=== PATIENT | female | born 1980 | race Caucasian/White ===

== ENCOUNTER 2023-07-05 09:33 | Day surgery (SDC) | payer BC, SELFPAY ==
[2023-07-05 10:01] VITALS: BMI 23.3
[2023-07-05 10:03] VITALS: BP 106/66; PULSE 82; RESP 18; TEMP 36.3; O2SAT 98
[2023-07-05] MEDS: LACTATED RINGERS 1000 ML 1,000 ML 100 ML IV ×2 (10:15→11:54)
[2023-07-05] MEDS: SODIUM CHLORIDE 0.9 % (FLUSH) 10 ML SYRINGE IVF (10:17)
--- NOTE | 2023-07-05 10:45 | CRLHL7_ITS ---
For Patients: As a result of the Century Cures Act, medical imaging exams and procedure reports are released immediately into your electronic medical record. You may view this report before your referring provider. If you have questions, please contact your health care provider. INDICATION: Postop. TECHNIQUE: Two spot images of the left forefoot submitted. 47.1 seconds fluoro time provided. FINDINGS: Left 1st TMT fusion plate and screws. Second metatarsal neck osteotomy with screw fixation. Dictated by Chay Olivares MD @ 07/06/2023 1:31:48 PM (Electronically Signed)
[2023-07-05] MEDS: CEFAZOLIN 1 GM inj IVP (10:50)
[2023-07-05] MEDS: BUPIVACAINE 0.5% 30 ML INJECTION (10:53)
--- NOTE | 2023-07-05 11:30 | SUR.OPER ---
PATIENT QUESTIONS ANSWERED SATISFACTORILY PREOPERATIVELY.? PATIENT BROUGHT TO OR #1 PER CART.? Patient positioned supine on OR #1 bed.? The perioperative?team supported arms bilaterally on arm boards.? Final approval of positioning by surgeon.
[2023-07-05 13:11] VITALS: BP 106/69; PULSE 81; RESP 16; TEMP 37.1; O2SAT 99
--- NOTE | 2023-07-05 13:14 | W.ANESCHARGE ---
Anesthesia Charges Start Date/Time Anesthesia Start Date: 07/05/23 Anesthesia Start Time: 10:42 Stop Date/Time Anesthesia Stop Date: 07/05/23 Anesthesia Stop Time: 13:15
[2023-07-05 13:30] VITALS: BP 103/55; PULSE 69; RESP 16; O2SAT 99
--- NOTE | 2023-07-05 13:30 | P.GSOP_ITS ---
Operative Note Date of procedure: 07/05/23 Pre-op diagnosis: 1. Hallux valgus with bunion left 2. Metatarsalgia 2nd left Post-op diagnosis: 1. Hallux valgus with bunion left 2. Metatarsalgia 2nd left Type of Procedure: 1. Lapidus bunionectomy left foot 2. Naresh osteotomy 2nd left Indications: Patient is in clinic for ongoing bunion and metatarsal pain. She is not improved with nonsurgical care and has elected to proceed surgical reconstruction. I reviewed the procedure, recovery, expectation potential complications. These include but are not limited to: Poor wound healing, infection, under correction, over correction, nonunion, malunion, delayed union, continued pain, stiffness, potential need for future surgery, hardware irritation, nerve injury, complex regional pain syndrome, deep venous thrombosis, pulmonary embolism and . All questions answered and written consent was obtained. Procedure Description: After discussing the risks and benefits of the procedure, the patient signed informed consent.? The operative site was marked and the patient was brought to the operating room and placed on the operating table in supine position.? Care was taken to pad the patient's pressure points.?? The patient was then given sedation by anesthesia.?? The operative site was then prepped and draped in the usual sterile fashion.? A time-out was then performed. Left foot was exsanguinated and the ankle tourniquet inflated to 250 mm Hg. Dorsomedial current freed linear incision was made over the 1st metatarsophalangeal joint extended dorsally and medially to the 1st metatarsal cuneiform joint. The incision was carried down through skin subcutaneous tissues. A T-shaped capsular incision was then made the capsular tissues reflected away from the head of the 1st metatarsal. Blunt dissection carried out into the 1st intermetatarsal space a standard lateral release was performed. Dorsal fibular sesamoidal ligament the adductor tendon were released and a minimal release of the plantar and lateral joint capsule. Extensor hallus longus tendon was retracted laterally. Subcutaneous tissues reflected away from the 1st metatarsal cuneiform joint. Periosteum left intact. The joint was incised. A joint distractor applied and the joint . Utilizing a osteotome and curette cartilage and subchondral bone were removed from the medial cuneiform and 1st metatarsal base. Wound was irrigated normal sterile saline. The joint was then prepped by drilling multiple fenestrated holes to the opposing fusion surfaces. Both sides were then fish-scaled with an osteotome. A linear incision was then made over the 2nd metatarsal head. Blunt dissection carried along the lateral border. Guide pin was placed in the 1st metatarsal head and the Lapifuse jig applied and the 1st metatarsal was corrected in all 3 planes. The jig was locked in place. C-arm confirmed excellent position. Guide pin was placed in the 1st metatarsal base plantar medial and driven across the fusion site into the middle cuneiform. 35 mm partially threaded cannulated screw was then inserted. Excellent compression noted across the fusion site. The jig was removed and a 5 hole plate was applied dorsal medial across the fusion site. 3.0 mm locking screws were placed 2 proximal and 2 distal. 1st metatarsal head was then remodeled with a rotary bur. Wound was thoroughly irrigated normal sterile saline. Final C-arm images confirmed excellent reduction of the bunion deformity. Redundant capsular tissue was excised at the MPJ. Capsule was then repaired using 3-0 Vicryl resulting in the hallux and rectus position. Subcutaneous tissues reapproximated 4-0 Monocryl and skin closed with 4-0 Prolene. Through the 2nd metatarsal head incision the extensor tendons were reflected laterally. A periosteal capsular incision was made linearly. The 2nd metatarsal head was exposed. A Naresh osteotomy was then performed and the capital fragment was transposed proximal 3 mm. It was then fixated using a 2.7 mm twist off screw x1. Dorsal overhang was removed with a rongeur. Wound irrigated normal sterile saline. Joint capsule repaired with 4-0 Vicryl subcutaneous tissues reapproximated 4-0 Monocryl and skin closed with 4-0 Prolene. Sterile dressings were then applied. Tourniquet was released and Normal capillary fill time returned all digits. She was placed in a well-padded cam boot. The patient was then woken and transported to the recovery area in stable condition. The patient tolerated the procedure well. She is given both written and verbal postop instructions. She is nonweightbearing. She is given oxycodone for pain. She will follow up in clinic in 2 days. Findings: Complications: None apparent Implants: Mcdonald Lapifuse 5 hole plate x1, 3.0 locking screws times 4, 4.0 partially- threaded cannulated screw x1, Octaviano twist off 2.7 mm screw x1. Anesthesia: MAC and local Surgeon: William Carlos DPM Estimated blood loss (mL): 2 Condition: stable Disposition: same day
[2023-07-05 13:45] VITALS: BP 108/60; PULSE 66; RESP 16; O2SAT 99
== END 2023-07-05 14:11 | disposition home or self-care (01) ==
LOC: OR 09:35
PROVIDERS: PCP Student in an Organized Health Care Education/Training Program; Visit Provider Podiatrist
PROC: (CPT 28292; principal; 2023-07-05 10:45)
DX: M20.12 Hallux valgus (acquired), left foot (principal); M21.612 Bunion of left foot; M77.42 Metatarsalgia, left foot
CPT/HCPCS: 28297; 28308; 01480; 73620; 76000; 81025; C1713; J0665; J0690; J1100; J1885; J2405; J2704; J3010; J7120

== ENCOUNTER 2023-10-04 06:01 | Day surgery (SDC) | payer BC, SELFPAY ==
--- OUTSIDE RECORDS SUMMARY | 2023-10-04 06:04 | XMS_ITS | Clinical Summary ---
Author Name Unknown Organization [facility] Address [place], [place] [address] Care Team Providers Care Plywood Patcher Name Role Phone Denise Gallego DO Primary Care Provider [phone] Allergies Active Allergy Reactions Criticality Noted Date Comments Erythromycin GI Upset 08/30/2006 Medications Medication Sig Dispensed Refills Start Date End Date Status cetirizine (ZYRTEC) 10 mg tabletIndications:S easonal allergies TAKE 1 TAB BY MOUTH ONCE DAILY. 30 tablet 5 06/15/2012 Active albuterol (PROVENTIL) 0.083 % neb solutionIndications :Asthma, moderate persistent, uncomplicated Inhale 3 mL via a nebulizer every 4 hours if needed for Cough, Shortness Of Breath or Wheezing. 1 box 2 03/20/2015 Active cyclobenzaprine (FLEXERIL) 10 mg tabletIndications:M igraine without status migrainosus, not intractable, unspecified migraine type Take 1 Tablet (10 mg) by mouth 2 times daily if needed for Muscle Spasm. 30 Tablet 09/03/2022 Active SUMAtriptan (IMITREX) 50 mg tabletIndications:M igraine without status migrainosus, not intractable, unspecified migraine type Take 1-2 tablets by mouth every 2 hours as needed for migraine. Max 200mg (4 tablets) per 24 hours. 9 Tablet 3 09/03/2022 Active estradiol 0.1 mg/24 hr (CLIMARA) 0.1 mg/24 hr patchIndications:S/ P total hysterectomy and bilateral salpingo-oophorecto my Apply 1 Patch on dry, clean, hairless skin once weekly. 12 Patch 2 02/23/2023 Active montelukast (SINGULAIR) 10 mg tabletIndications:M ild intermittent asthma without complication TAKE ONE TABLET BY MOUTH AT BEDTIME 90 Tablet 3 03/22/2023 Active oxyCODONE (ROXICODONE) 5 mg immediate release tabletIndications:H allux valgus with bunions, left,Metatarsalgia, left foot Take 1-2 Tablets (5-10 mg) by mouth every 4 hours if needed for Pain. 20 Tablet 07/15/2023 Active durable medical equipment (DME)Indications:Blunt llux valgus with bunions, left,S/P foot surgery, left AIR SELECT, SHORT, SMALL, REF: 01ES-S 07/21/2023 Active Advair Diskus 250-50 mcg/dose diskus inhalerIndications: Mild intermittent asthma without complication INHALE ONE PUFF BY MOUTH TWICE DAILY 3 Each 3 09/27/2023 Active Ventolin HFA 90 mcg/actuation inhalerIndications: Mild intermittent asthma without complication INHALE 1-2 PUFFS BY MOUTH EVERY 4 HOURS IF NEEDED FOR SHORTNESS OF BREATH. 18 g 1 09/27/2023 Active albuterol HFA (Ventolin HFA) 90 mcg/actuation inhalerIndications: Mild intermittent asthma without complication Inhale 1-2 Puffs by mouth every 4 hours if needed for Shortness Of Breath. 18 g 2 09/03/2022 4 Discontinued fluticasone propion-salmeteroL (Advair Diskus) 250-50 mcg/Dose diskus inhalerIndications: Mild intermittent asthma without complication Inhale 1 Puff by mouth two times daily. 180 Each 1 09/03/2022 4 Discontinued Active Problems Problem Noted Date Diagnosed Date S/P total hysterectomy and bilateral salpingo-oo phorectomy 12/10/2020 Idiopathic hypersomnia with long sleep time 05/31 Pituitary adenoma 04/11/2015 Chiari I malformation 03/26/2015 Migraine 06/15/2014 Endometriosis 08/31/2009 Overview: S/p vaginal hysterectomy 08/07. Esophageal reflux 08/31/2009 Anxiety state, unspecified 09/11/2008 Tobacco use disorder 02/08/2008 Unspecified asthma(493.90) 08/30/2006 Overview: Asthma letter 06/02/10 Mild dysplasia of cervix 08/30/2006 Resolved Problems Problem Noted Date Diagnosed Date Resolved Date Ureteral obstruction 08/31/2009 015 Anemia 08/31/2009 06/14/2023 Encounters Date Type Department Care Team Description 09/29/2023 3:00 PM CDT Office Visit [address] [address] William Carlos, DPM Post-op (Left foot, DOS 07/05/23, 3 months post op); Follow Up (Right foot-final surgical consult, DOS 10/04/23) 09/29/2023 Travel 09/24/[address] [address] Flor Martin PA Refill Request (Advair Diskus, Ventolin Hfa) 09/20/2023 7:15 AM CDT Preop Visit [address] [address] Denise Gallego DO Preoperative Exam (10/04/2023 - Lapidus bunionectomy right & Naresh [facility] - Dr. Carlos - [phone]) 09/20/2023 Travel 08/18/2023 3:00 PM CDT Ancillary Procedure [address] [address] 08/18/2023 2:30 PM CDT Office Visit [address] [address] William Carlos, DPM Post-op (Left foot, DOS 07/05/23, 6 week post op) 08/18/2023 Travel 07/21/2023 2:30 PM INSPECTOR BRAKE LINING Office Visit [address] [address] William Carlos, DPM Post-op (Left foot, DOS 07/05/23, 2 weeks post op) 07/21/2023 Travel 07/07/2023 2:30 PM INSPECTOR [employer]RAKE LINING Office Visit [facility] [address] [place] [address] William Carlos DPM Post-op (Left foot, DOS 07/05/23, initial post op) 07/07/2023 2:15 PM INSPECTOR BRAKE LINING Ancillary Procedure [facility] [address] [place] [address] 07/07/2023 Travel 07/07/2023 Orders Only [facility] [address] [place] [address] William Carlos DPM 1 scan: (1-Ord) [facility], 07/05/2023 07/06/2023 Telephone [facility] [address] [place] [address] William Carlos DPM Surgical Followup from Last 3 Months Immunizations Name Administration Dates Next Due COVID-19 vaccine (Moderna 10 0mcg/0.5mL) PF, MDV 09/19/2020 COVID-19 vaccine ([employer] 30mcg/0.3mL) PF, MDV 05/26/2021 Influenza, IIV3 (Age >=3 years) 02/28/2009,03/31 Influenza, IIV4 03/27/2021,03/17/2018 Influenza, IIV4 (=>6mos) MDV 03/22/2019,03/17/20 18,03/18/2017 Influenza, ccIIV3 (Age >=18 Years) 04/14/2017 Pneumococcal Conj 20-valent (Prevnar 20) 022 Td (Age >=7 Years) 05/31/1990 Tdap 08/25/2018,02/08/2008 Family History Medical History Relation Name Comments Other Mother graves disease/ autoimmune disease diagnosed 2006 Cancer-colon Paternal Grandfather Diabetes Paternal Grandmother 70s Blood Disease Paternal Uncle Antithrombin 3 deficiency Anesthesia Problem No Family History Cancer-breast No Family History Cancer-ovarian No Family History Relation Name Status Comments Mother Paternal Grandfather Paternal Grandmother Paternal Uncle Social History Tobacco Use Types Packs/Day Years Used Date Smoking Tobacco: Former Cigarettes 0.3 17.9 1 06/08/2003 - 09/06/2022 Passive Smoke Exposure: Past Smokeless Tobacco: Never Tobacco Cessation:Counseling Given: Yes Comments:Quit on 2022 Alcohol Use Standard Drinks/Week Comments Yes 4 (1 standard drink = 0.6 oz pur e alcohol) rarely PHQ-2 Answer Date Recorded PHQ-2 TOTAL SCORE 0 02/23/2023 Social Connections Answer Date Recorded Frequency of Communication with Friends and Fami ly 0 09/20/2023 Financial Resource Strain Answer Date R ecorded Difficulty of Paying Living Expenses 3 09/20/2023 Difficulty of Paying Living Expenses Not on file 09/20/2023 Food Insecurity Answer Date Recorded Worried About Running Out of Food in the Last Ye ar 1 09/20/2023 Transportation Needs Answer Date Record ed Lack of Transportation (Medical) 1 09/20/2023 Housing Stability Answer Date Recorded Unable to Pay for Housing in the Last Year 1 09/20/2023 Sex and Gender Information Value Date Recorded Sex Assigned at Not on file Gender Identity Not on file Sexual Orientation Not on file Obstetrics History Last Filed Vital Signs Vital Sign Reading Time Taken Comments Blood Pressure 110/71 09/20/2023 7:22 AM CDT Pulse 61 09/29/2023 3:04 PM CDT Temperature 36.7 ??C (98.1 ??F) 07/21/2023 2:38 PM CS T Respiratory Rate 20 08/30/2012 3:15 PM CDT Oxygen Saturation 99% 09/29/2023 3:04 PM CDT Inhaled Oxygen Concentration - - Weight 59 kg (130 lb) 09/29/2023 3:04 PM CDT Height 159.7 cm (5' 2.87) 02/23/2023 2:58 PM CD T Body Mass Index 23.12 02/23/2023 2:58 PM CDT Plan of Treatment Upcoming Encounters Date Type Department Care Team (Late st Contact Info) Description 10/04/2023 7:00 AM CDT Office Visit [facility] [address] [place] [address] William Carlos, DPM [address] [place] [id number] 10/06/2023 2:30 PM CDT Office Visit [facility] [address] [facility] [place] [address] William Carlos DPM [address] [place] [address] 10/20/2023 2:00 PM CDT Office Visit [facility] [address] [facility] [place] [address] William Carlos DPM [address] [place] [address] 11/17/2023 2:00 PM CDT Office Visit [facility] [address] [facility] [place] [address] William Carlos DPM [address] [place] [address] Health Maintenance Due Date Last Done Comments COVID-19 vaccine series ( season) 2023 05/26/2021, 10/17/2020, 09/19/2020 Influenza for age 9-49 01/30/2024 , 03/22/2019, 03/17/2018, Additional history exists BMI (ht and wt on same day) for age 18+ 02/24/2024 02/23/2023, 08/07/2022, 01/23/2022, Additional history exists Depression screening for age 12+ 02/24/2024 02/23/2023, 01/23/2022, 12/10/2020, Additional history exists Tetanus booster 08/25/2028 08/25/2018, 01/29, 05/31/1990 HIV for age 15-65 Completed 03/02/2011 Hepatitis C screening for age 18-79 Completed 03/02/2011 Tdap Completed 08/25/2018, 02/08/2008 Pneumococcal series for age 6-64 Aged Out 01/23/2022 No longer eligible based on patient's age to complete this topic Medical Devices Implanted Type Area Catalogue Compiler Device Identifier Shelf Expiration Date Model / Serial / Lot Stent Prcflx [id number] Hydpls - [id number] Implanted:Qty: 1 on 08/31/2009 at [facility] Right: [facility]re[facility] 05/31/2012 [id number] / / [id number] Stent Prcflx [id number] Hydpls - [id number] Implanted:Qty: 1 on 08/31/2009 at [facility] Left: Ureter [facility] 05/31/2012 [id number] / / [id number] Procedures Procedure Name Priority Date/Time Associated Diagnosis Comments XR FOOT 3 VIEWS LEFT Routine 08/18/2023 2:24 PM CDT S/P foot surgery, left XR FOOT 3 VIEWS LEFT Routine 07/07/2023 2:15 PM INSPECTOR BRAKE LINING S/P foot surgery, left ANTI HIV 1/2 Routine 03/02/2011 6:38 PM CDT Screening for STD (sexually transmitted disease) ANTI HCV Routine 03/02/2011 6:38 PM CDT Screening for STD (sexually transmitted disease) from Last 3 Months or Most Recently Relevant to Health Maintenance Results * XR FOOT 3 VIEWS LEFT (08/18/2023 2:24 PM CDT) Only the most recent of2 resultswithin the time period is included. Anatomical Region Laterality Modality FEET, FOOT L Computed Radiogr aphy 08/18/2023 4:22 PM CDT Narrative 08/18/2023 4:22 PM CDT For Patients: ??As a result of the Century Cures Act, medical imaging exams and procedure reports are released immediately into your electronic medical record. ??You may view this report before your referring provider. ??If you have questions, please contact your health care provider. Indication: Postop Technique: Left foot 3 views Comparison: 07/07/2023 Findings: Fusion hardware about the medial midfoot fusion is intact. Postop changes to the distal 2nd metatarsal. No acute fracture. Intact calcaneus. Impression: Stable alignment of the 1st MTP fusion with intact hardware. Stable postop changes to the 2nd metatarsal head. Dictated by Adalberto Bobby MD @ 08/18/2023 4:22:41 PM (Electronically Signed) Procedure Note Adalberto Bobby MD - 08/18/2023 For Patients: As a result of the Cures Act, medical imagingexams and procedure reports are released immediately into your electronicmedical record. You may view this report before your referring provider.If you have questions, please contact your health care provider. Indication: Postop Technique: Left foot 3 views Comparison: 07/07/2023 Findings: Fusion hardware about the medial midfoot fusion is intact. Postop changesto the distal 2nd metatarsal. No acute fracture. Intact calcaneus. Impression: Stable alignment of the 1st MTP fusion with intact hardware. Stable postopchanges to the 2nd metatarsal head. Dictated by Adalberto Bobby MD @ 08/18/2023 4:22:41 PM (Electronically Signed) William Carlos DP GENERAL IMAGING * ANTI HCV (03/02/2011 6:38 PM CDT) ANTI HCV Non-reacti ve [facility] Blood specimen (specimen) BLOOD SPECIMEN / Unknown 03/02/2011 6:38 PM CDT 03/02/2011 6:31 PM CDT Manjula Motley NP SEND OUTS Performing Organization Address City/[facility] Co de Phone Number [facility] INTERNAL ZIP [phone] [address] * ANTI HIV 1/2 (03/02/2011 6:38 PM CDT) ANTI HIV 1/2 Non-reacti ve [facility] Blood specimen (specimen) BLOOD SPECIMEN / Unknown 03/02/2011 6:38 PM CDT 03/02/2011 6:31 PM CDT Manjula Manjula Motley [employer] SEND OUTS [facility] INTERNAL ZIP [phone] [address] from Last 3 Months or Most Recently Relevant to Health Maintenance Advance Directives * Full Code (Latest Code Status on File) Date Activated Date Inactivated Comments 08/31/2009 11:16 AM 09/02/2009 3:24 PM * Full Code Date Activated Date Inactivated Comments 08/31/2009 12:51 AM 08/31/2009 11:16 AM Care Teams Plywood Patcher Relationship Specialty Start Date End Date Denise Gallego DO [address] [place] [address] PCP - General Family Practice 02/18/23
[2023-10-04 06:14] VITALS: BP 101/75; PULSE 64; RESP 16; TEMP 36.4; O2SAT 98; BMI 23.9
[2023-10-04] MEDS: SODIUM CHLORIDE 0.9 % (FLUSH) 10 ML SYRINGE IVF (06:15)
[2023-10-04] MEDS: LACTATED RINGERS 1000 ML 1,000 ML 100 ML IV ×2 (06:15→08:36)
--- NOTE | 2023-10-04 07:15 | XR_ITS ---
Patient: THIERRY PAINTER Facility:?[facility] Patient ID:?[id number] Site Patient ID:?[id number]. Site :?[id number] Study:?XRay-Extremity Right FOOT-10/04/2023 9:40:32 AM Ordering Physician:PANCHO Final Report: Indication: LAPIDUS BUNIONECTOMY Technique: Two fluoroscopic images right foot. Fluoroscopic time 29.3 seconds. IMPRESSION: Fluoroscopic guidance for Lapidus bunionectomy. Dictated by Adalberto Bobby MD @ 10/04/2023 12:26:50 PM Signed by:?Adalberto Bobby MD @10/04/2023 12:26:50 PM (Electronic Signature)
[2023-10-04] MEDS: BUPIVACAINE 0.25% 30 ML INJECTION (07:19)
[2023-10-04] MEDS: CEFAZOLIN 2 GM INJ IVP (07:20)
[2023-10-04 09:37] VITALS: BP 88/70; PULSE 70; RESP 16; TEMP 36; O2SAT 97
--- NOTE | 2023-10-04 09:37 | W.ANESCHARGE ---
Anesthesia Charges Start Date/Time Anesthesia Start Date: 10/04/23 Anesthesia Start Time: 07:14 Stop Date/Time Anesthesia Stop Date: 10/04/23 Anesthesia Stop Time: 09:37
[2023-10-04 09:45] VITALS: BP 91/78; PULSE 72; RESP 16; O2SAT 97
[2023-10-04 10:00] VITALS: BP 100/74; PULSE 71; RESP 16; TEMP 36.3; O2SAT 97
[2023-10-04 10:15] VITALS: RESP 16
--- NOTE | 2023-10-04 16:22 | W.PM.PODPROC ---
Date of Procedure: 10/04/23 Surgeon: William Carlos DPM Pre-op Diagnosis: 1. Hallux abductovalgus with bunion right foot 2. Metatarsalgia 2nd right Post-op Diagnosis: 1. Hallux abductovalgus with bunion right foot 2. Metatarsalgia 2nd right Type of Procedure: 1. Lapidus bunionectomy right 2. Naresh osteotomy 2nd right Indications: Patient has had longstanding bunion pain not responding to conservative care. She has elected to have surgical correction. Reviewed the procedure, recovery, expectation potential complications. These include but are not limited to: Poor wound healing, infection, under correction, over correction, nonunion, malunion, delayed union, hardware irritation, nerve injury, complex regional pain syndrome, potentially future surgery, deep venous thrombosis, pulmonary embolism and possible . She understands risks written consent was obtained. Site marked. Procedure Description: Patient brought the operating room placed supine position on operating table. IV sedation was initiated local anesthetic injected into the right foot. She was prepped and draped in normal sterile fashion. Standard time-out protocol followed. The right limb was exsanguinated the tourniquet inflated to 250 mm Hg. Dorsomedial curvilinear incision was made over the 1st metatarsal phalangeal joint and extended proximal to the metatarsal cuneiform joint. Incision was carried down through skin subcutaneous tissues. T-shaped capsular incision was made. Blunt dissection was carried into the 1st intermetatarsal space and standard lateral release was performed. Plantar medial capsule, dorsal fibular sesamoidal ligament and adductor tendons released. Blunt dissection was carried down to the 1st metatarsal cuneiform joint. Extensor tendon reflected laterally. Joint was identified and incised. This plantar tissues released with a elevator. A joint distractor was placed and the joint distracted. The cartilage and subchondral bone was removed with a osteotome and curette. To it was irrigated normal sterile saline. A small incision was made over the dorsal 2nd metatarsal head. Blunt dissection down to with lateral were. Guide pin was placed in the 1st metatarsal head and the Lapifuse jig applied. First metatarsal was reduced in all 3 planes the optimal position and the jig locked in place. C-arm confirmed excellent reduction. Guide pin was placed from plantar medial across the fusion site into the middle cuneiform avoiding the 2nd metatarsal cuneiform joint. 4.0 cannulated screw was then placed using standard technique. Excellent compression noted. Five hole plate was then applied dorsal medial with 2 distal locking screws and 2 proximal locking screws. First metatarsal head was remodeled with a rotary bur. Wounds were thoroughly irrigated normal sterile saline. C-arm confirmed excellent correction. Redundant capsular tissue was excised and the capsule repaired with 3-0 Vicryl. Subcutaneous tissues reapproximated 4-0 Monocryl and skin closed with 4-0 Prolene. The incision over the 2nd metatarsal head was extended distally and proximally. Extensor tendons reflected laterally. A linear capsular incision made. Naresh osteotomy completed and the capital fragment transposed proximal. It was fixated with a 2.7 mm twist off screw x1. Dorsal overhang was removed with a rongeur. We irrigated with normal sterile saline. Capsular tissue reapproximated with 4-0 Vicryl. Subcutaneous tissues reapproximated 4-0 Monocryl skin closed with 4-0 Prolene. Sterile dressings were placed. Tourniquet was released and normal capillary fill time returned all digits. She was placed in a well-padded cam boot. He is transferred from OR to PACU vital signs stable vascular status intact. She will be discharged per Anesthesia. She is given written and verbal postop instructions. She is given oxycodone for pain. She is heel weight-bearing with crutches. She will start aspirin therapy tomorrow. Anesthesia: MAC and local Hemostasis: ankle Estimated blood loss (mL): 2 Implants: [place] Lapidus plate x1, 3.0 mm cortical locking screws times 4, 4.0 cannulated screw x1, 2.7 mm twist off screw x1 Specimens: none sent Disposition: same day
== END 2023-10-04 10:30 | disposition home or self-care (01) ==
LOC: OR 06:02
PROVIDERS: PCP Student in an Organized Health Care Education/Training Program; Visit Provider Podiatrist
PROC: (CPT 28292; principal; 2023-10-04 07:15)
DX: M20.11 Hallux valgus (acquired), right foot (principal); M77.41 Metatarsalgia, right foot; M21.611 Bunion of right foot
CPT/HCPCS: 28297; 28308; 01480; 73620; 76000; 81025; C1713; J0665; J0690; J1100; J1885; J2405; J2704; J3010; J7120